=== PATIENT | female | born 1965 | race Caucasian/White ===

== ENCOUNTER → 2016-06-19 | Outpatient (CLI) | payer OTHER ==
[2016-06-19 15:19] LABS: BASO % 0.2 %; BASO ABS # 0.02 K/uL (0-0.2); COMPLETE YES; EOS % 1.7 %; IG% 0.2 %; LYMPH % 30.3 %; LYMPH ABS # 2.68 K/uL (1.2-3.4); MEAN CELL VOLUME 92.7 fL (80-100); MEAN CORPUSCULAR HEMOGLOBIN 31.1 pg (25-34); MEAN CORPUSCULAR HGB CONC 33.6 g/dl (32-36); MEAN PLATELET VOLUME 9.2 fL (7.4-10.4); MONO % 4.5 %; NEUT % 63.1 %; PLATELET COUNT 377 K/uL (130-400); RED BLOOD COUNT 4.53 M/uL (4.2-5.4); WHITE BLOOD COUNT 8.84 K/uL (4.8-10.8)
[2016-06-19 15:29] LABS: ALT/SGPT 33 U/L (12-78); BLOOD UREA NITROGEN 15 mg/dl (7-18); BUN/CREATININE RATIO 17.3 (10-20); CALCIUM 9.2 mg/dl (8.5-10.1); CARBON DIOXIDE 29 mmol/L (21-32); CHLORIDE 100 mmol/L (98-107); CREATININE 0.85 mg/dl (0.60-1.20); GLUCOSE 89 mg/dl (70-99); POTASSIUM 3.8 mmol/L (3.5-5.1); SODIUM 139 mmol/L (136-145)
[2016-06-19 15:32] LABS: ALB/GLOB RATIO 1.1 (0.9-2); ALKALINE PHOSPHATASE 99 U/L (45-117); AST/SGOT 21 U/L (15-37)
== END | disposition home or self-care (01) ==
LOC: C.LABSPEC 15:08
PROVIDERS: ATTEND Family Medicine
DX: I10 Essential (primary) hypertension (principal)

== ENCOUNTER → 2016-08-30 | Outpatient (CLI) | payer OTHER ==
--- NOTE | 2016-08-30 15:35 | MAMMOGRAPHY REPORT ---
BILATERAL DIGITAL SCREENING MAMMOGRAM TOMOSYNTHESIS WITH CAD: 08/30/2016 CLINICAL HISTORY: Routine screening. Patient has no complaints. TECHNIQUE: Breast tomosynthesis in addition to standard 2D mammography was performed. Current study was also evaluated with a Computer Aided Detection (CAD) system. COMPARISON: Comparison is made to exams dated: 08/25/2015 mammogram, 08/19/2014 mammogram, 08/16/2013 m ammogram, 04/02/2013 mammogram, 08/28/2012 mammogram, and 08/14/2012 mammogram - [facility] enter. BREAST COMPOSITION: There are scattered areas of fibroglandular density in both breasts. FINDINGS: No suspicious masses, calcifications, or areas of architectural distortion are noted in e ither breast. There has been no significant interval change compared to prior exams. IMPRESSION: ACR BI-RADS CATEGORY 1: NEGATIVE There is no mammographic evidence of malignancy. A 1 year screening mammogram is recommended. The p atient will receive written notification of the results. Approximately 10% of breast cancers are not detected with mammography. A negative mammographic repor t should not delay biopsy if a clinically suggestive mass is present. Radha Dominguez M.D. ah/:08/30/2016 15:17:05 Fuel Cell Binder: Celestina CROCKER(R)(M), [facility] letter sent: Normal 1/2 BI-RADS Code: ACR BI-RADS Category 1: Negative
== END | disposition home or self-care (01) ==
LOC: C.MAMM 08:46
PROVIDERS: ATTEND Obstetrics & Gynecology
DX: Z12.31 Encounter for screening mammogram for malignant neoplasm of breast (principal)

== ENCOUNTER → 2017-08-05 | Outpatient (CLI) | payer OTHER ==
--- NOTE | 2017-08-05 17:44 | DIAGNOSTIC IMAGING REPORT ---
LUMBAR SPINE RADIOGRAPHS CLINICAL HISTORY: LOW BACK PAIN COMPARISON: None FINDINGS: Alignment of the lumbar spine is anatomic. There is moderate disc space narrowing at L5-S1. There is moderate multilevel facet arthrosis. There is no fracture or suspicious lesion. IMPRESSION: 1. No acute lumbar spine fracture. 2. Moderate disc space narrowing at L5-S1. 3. Moderate multilevel facet arthrosis of the lumbar spine. Electronically signed by: Nicholas Thompson M.D. 08/05/2017 5:42 PM Dictated Date/Time: 08/05/2017 5:41 PM
--- NOTE | 2017-08-05 17:49 | DIAGNOSTIC IMAGING REPORT ---
SACRUM COCCYX MIN 2 VIEWS CLINICAL HISTORY: LOW BACK PAIN COMPARISON STUDY: No previous studies for comparison. FINDINGS: The sacroiliac joints are intact without evidence for ankylosis. There is no fracture or suspicious lesion within the sacrum or the coccyx. There is moderate degenerative disc disease at L5-S1. IMPRESSION: 1. No acute fracture of the sacrum or coccyx. 2. Moderate degenerative disc disease at L5-S1. Electronically signed by: Nicholas Thompson M.D. 08/05/2017 5:47 PM Dictated Date/Time: 08/05/2017 5:42 PM
--- NOTE | 2017-08-05 18:21 | DIAGNOSTIC IMAGING REPORT ---
KUB CLINICAL HISTORY: LOW BACK PAIN COMPARISON STUDY: None. FINDINGS: The bowel gas pattern is normal. Several calcifications project over the right renal shadow and measure up to 3 mm. There are numerous pelvic calcifications. IMPRESSION: 1. Probable small right renal calculi. 2. Numerous pelvic calcifications. These likely reflect phleboliths although distal ureteral calculi could appear similar. Electronically signed by: Nicholas Thompson M.D. 08/05/2017 6:20 PM Dictated Date/Time: 08/05/2017 6:18 PM
== END | disposition home or self-care (01) ==
LOC: C.RAD 16:41
PROVIDERS: ATTEND Family Medicine
DX: M54.5 Low back pain (principal)

== ENCOUNTER → 2017-08-29 | Outpatient (CLI) | payer OTHER ==
--- NOTE | 2017-08-29 16:11 | DIAGNOSTIC IMAGING REPORT ---
R WRIST MIN 3 VIEWS ROUTINE CLINICAL HISTORY: Right wrist pain. COMPARISON: None FINDINGS: Alignment of the right wrist is anatomic. No fracture or suspicious lesion is present. Scaphoid is intact. No erosions are identified. There is minimal radiocarpal joint space narrowing. IMPRESSION: 1. No acute fracture or dislocation of the right wrist. 2. Minimal radiocarpal joint space narrowing. Electronically signed by: Nicholas Thompson M.D. 08/29/2017 4:10 PM Dictated Date/Time: 08/29/2017 4:09 PM
== END | disposition home or self-care (01) ==
LOC: C.RAD 15:30
PROVIDERS: ATTEND Family Medicine
DX: M25.531 Pain in right wrist (principal)

== ENCOUNTER → 2017-09-03 | Outpatient (CLI) | payer OTHER ==
--- NOTE | 2017-09-04 07:57 | MAMMOGRAPHY REPORT ---
BILATERAL DIGITAL SCREENING MAMMOGRAM TOMOSYNTHESIS WITH CAD: 09/03/2017 CLINICAL HISTORY: Routine screening. Patient has no complaints. TECHNIQUE: Breast tomosynthesis in addition to standard 2D mammography was performed. Current study was also evaluated with a Computer Aided Detection (CAD) system. COMPARISON: Comparison is made to exams dated: 08/30/2016 mammogram, 08/25/2015 mammogram, 08/19/2014 carlos mogram, 08/16/2013 mammogram, 04/02/2013 mammogram, and 08/28/2012 mammogram - [facility] [address] er. BREAST COMPOSITION: There are scattered areas of fibroglandular density in both breasts. FINDINGS: No suspicious masses, calcifications, or areas of architectural distortion are noted in ei ther breast. There has been no significant interval change compared to prior exams. Scattered bilater al benign-appearing calcifications are not significantly changed. Benign-appearing circumscribed 7 m m mass within the right medial breast on the cc view is not significantly changed dating back [place] exam. IMPRESSION: ACR BI-RADS CATEGORY 2: BENIGN There is no mammographic evidence of malignancy. A 1 year screening mammogram is recommended. The pa tient will receive written notification of the results. Approximately 10% of breast cancers are not detected with mammography. A negative mammographic report should not delay biopsy if a clinically suggestive mass is present. Radha Dominguez M.D. ah/:09/03/2017 09:11:04 Scouring Machine Operator: Maya CROCKER,R, M, [facility] letter sent: Normal 1/2 BI-RADS Code: ACR BI-RADS Category 2: Benign
== END | disposition home or self-care (01) ==
LOC: C.MAMM 08:43
PROVIDERS: ATTEND Obstetrics & Gynecology
DX: Z12.31 Encounter for screening mammogram for malignant neoplasm of breast (principal)

== ENCOUNTER → 2017-12-25 | Outpatient (CLI) | payer OTHER | END | disposition home or self-care (01) | LOC: C.PAPS 15:49 | PROVIDERS: ATTEND Obstetrics & Gynecology | DX: Z12.4 Encounter for screening for malignant neoplasm of cervix (principal) ==

== ENCOUNTER 2024-10-05 17:09 | Observation (INO) ==
--- NOTE | 2024-10-05 17:19 | Emergency Department Note ---
Impression & Plan Syncope, Hypokalemia, Chest pain ED Provider Note NAME: ELIZABETH ALEMAN AGE: 58 SEX: F : 1965 ARRIVES VIA: Walk-In INFORMANT: Patient, ED PROVIDER(S): Jose Strickland MD CHIEF COMPLAINT: Chest pain MEDICAL DECISION MAKING: Patient presents due to concern for chest pain. IV was established and blood work was obtained. The patient's blood work normal white count hemoglobin and platelet count. Troponin negative. Initial EKG with possible ST depressions in the lateral leads although motion artifact noted. The patient chest x-ray without overt concerning findings. Mild cardiac enlargement noted. Upon reassessment the patient feels relatively well. Repeat EKG obtained which does not show any depressions. I did consider escalation of care and offered admission after discussion the patient the patient would prefer the patient monitoring and possible stress test tomorrow. I did speak with the on-call hospital service Dr. Clayton. The patient was ordered p.o. potassium. Discussion w/ other healthcare providers: None Prior /Outside records reviewed: None Differential diagnosis: Cardiac ischemia, aortic dissection, pulmonary embolism, pneumothorax, pneumonia, pericarditis, myocarditis, GERD, cholecystitis, pancreatitis, musculoskeletal, as well as other pathologies were considered. Diagnostics, as interpreted by me: ECG: Motion artifact noted, normal sinus rhythm, rate of 86, normal intervals, normal axis, T wave inversion in lead III possible depressions in the lateral leads. Repeat EKG interpreted by myself Normal sinus rhythm, rate of 77, normal intervals normal axis T wave version lead III no obvious ST elevations. Cardiac monitoring: An order was placed for continuous cardiac monitoring. The monitor shows a rate of 85 with sinus rhythm. Patient was placed on pulse oximetry Medical decision rules: None Imaging studies: I informally interpreted the patient's chest x-ray does not show obvious pneumonia or pneumothorax with formal report to follow. HPI: Patient presents due to concern for chest tightness. Patient reports that she has had it for maybe about a week. Patient states it is more right-sided and is described as a tightness. Currently rates it at a 2 out of 10. The patient states she does have concomitant anxiety and is unsure as whether this could be related. Patient denies any cough or fever no recent surgeries procedures or hospitalizations and no recent [place] or plane travel. Patient states that sometimes at the end of the day she will have a little bit of swelling at the ankle with denies any persistent swelling. It is not unilateral and no associated calf pain. Patient denies any prior history of heart or lung disease. History of hypertension hyperlipidemia. No cough or fever. Patient states that she was seen at her PCP today and they were recommending an outpatient stress test but due to the concerns of inability to schedule until October were referred here for further evaluation and treatment. Patient denies any radiation of pain. PAST MEDICAL HISTORY: See Below PAST SURGICAL HISTORY: See Below SOCIAL HISTORY: See Below HOME MEDICATIONS: See Below ALLERGIES: See Below VITALS: See Below PHYSICAL EXAMINATION: GENERAL: NAD, non-toxic. Wearing glasses. EYE EXAM: Normal conjunctiva. PERRL, no anisocoria and EOM's grossly intact w/o pain. OROPHARYNX: Moist mucus membranes, grossly normal dentition. NECK: Trachea midline, no stridor. Supple, no nuchal rigidity, no adenopathy, non-tender. No signs of meningismus. FROM of the neck with good chin to chest and neck extension. Chest: No reproducible right-sided chest wall pain. LUNGS: Clear to auscultation. Normal chest wall mechanics. HEART: NSR, no MRG. ABDOMEN: Abdomen soft, non-tender, no masses, no rebound or guarding. BACK: No CVA TTP. SKIN: No rashes and no bruising. UPPER EXTREMITIES: Upper extremities are grossly normal. LOWER EXTREMITIES: Grossly normal, no edema. Negative Homans' sign bilaterally. NEURO EXAM: Awake and alert, follows commands, no obvious facial asymmetry, normal speech, moves all 4 extremities. 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, benign H/O endoscopy S/P dilation and curettage S/P skin biopsy Family History Aunt Breast cancer paternal Grandmother (Paternal) Breast cancer Osteosarcoma Father Aneurysm of abdominal aorta Mother Leiomyoma of body of uterus Osteonecrosis of jaw Denies family history of Ovarian cancer Colorectal cancer Social History Smoking Status: Never smoker Do You Dip or Chew Tobacco: No; Hx Alcohol Use: Yes Hx Substance Use: No Preferred Language: Kiswahili Communication Ability: Effective Ditch Repairer Required: No Beliefs That Will Affect Care: None Current Living Situation: Spouse Feels Safe at Home: Yes Assistive Devices: None Allergies Allergies Allergy/AdvReac Type Severity Reaction Status Date / Time cat dander Allergy Unknown Unknown Verified 10/05/24 23:01 dog dander Allergy Unknown Unknown Verified 10/05/24 23:01 house dust mite Allergy Unknown Unknown Verified 10/05/24 23:01 Gadolinium-Containing Allergy Anaphylaxis Verified 09/24/24 10:10 Contrast Medi cephalexin [From Keflex] AdvReac rash Verified 09/24/24 10:10 Home Meds Home Medications Medication Instructions Recorded Confirmed cholecalciferol (vitamin D3) 50 2,000 units PO DAILY 12/31/18 10/05/24 mcg (2,000 unit) capsule levothyroxine 88 mcg tablet 88 mcg PO DAILY 12/31/18 10/05/24 albuterol sulfate 90 mcg/actuation 1 - 2 puff inhalation .EVERY 4-6 10/05/24 10/05/24 aerosol inhaler HRS atorvastatin 20 mg tablet 20 mg PO UD 10/05/24 10/05/24 multivitamin 1 tab PO DAILY 10/05/24 10/05/24 Previous Rx's Medication Instructions Recorded estradiol 0.01% (0.1 mg/gram) 1 g vaginal .COMPLEX #42.5 grams 09/24/24 vaginal cream lisinopril 20 mg tablet 20 mg PO DAILY #30 tabs 10/06/24 Results & Data (ED) Vital Signs Vital Signs - 24 hr 10/05/24 17:12 10/05/24 17:29 Temperature 36.0 C L Temperature Source Oral Pulse Rate 94 H Pulse Rate [Right Finger] 92 H Pulse Rhythm [Right Finger] Regular Pulse Strength [Right Finger] Normal Respiratory Rate 18 23 Respiratory Effort / Characteristics Non-Labored Spontaneous Non-Labored Respiratory Depth Normal Normal Respiratory Pattern Regular Blood Pressure 160/85 H Blood Pressure [Right Arm] 170/112 H Blood Pressure Mean 110 Blood Pressure Mean [Right Arm] 131 Blood Pressure Position [Right Arm] Lying Pulse Oximetry 100 92 Oxygen Delivery Method Room Air Nasal Cannula Oxygen Flow Rate 2 Sepsis Recent Fever Within 48 Hours No Sepsis New/Unexplained Change in Mental Status No Sepsis Action Taken by Nursing No Action Required Home Medications Current Medication List: was personally reviewed by me Laboratory Data Attestation: I reviewed the patient's lab results. 10/05/24 17:27 10/06/24 06:34 Lab Results 10/05/24 Range/Units 17:27 WBC 10.46 (4.8-10.8) K/ul RBC 4.44 (4.20-5.40) M/uL Hgb 13.8 (12.0-16.0) g/dl Hct 39.9 (37.0-47.0) % MCV 89.9 (80.0-100.0) fL MCH 31.1 (25.0-34.0) pg MCHC 34.6 (32.0-36.0) g/dL RDW Std Deviation 40.3 (36.4-46.3) fL RDW Coeff of [place] 12.2 (11.5-14.5) % Plt Count 329 (130-400) K/uL MPV 8.7 L (9.4-12.4) fL Immature Gran % (Auto) 0.3 % Neut % (Auto) 53.3 % Lymph % (Auto) 34.4 % [place] % (Auto) 9.3 % Eos % (Auto) 2.2 % Baso % (Auto) 0.5 % Neut # (Auto) 5.58 (1.40-6.50) K/uL Lymph # (Auto) 3.60 H (1.20-3.40) K/uL [place] # (Auto) 0.97 H (0.11-0.59) K/uL Eos # (Auto) 0.23 (0.00-0.50) K/uL Baso # (Auto) 0.05 (0.00-0.20) K/uL Immature Gran # (Auto) 0.03 (0.01-0.20) K/uL PT 10.6 (9.0-12.0) Seconds INR 1.0 (0.9-1.1) APTT 28 (21-31) Seconds PTT Ratio 1.0 Sodium 138 (136-145) mmol/L Potassium 3.0 L (3.5-5.1) mmol/L Chloride 98 (98-107) mmol/L Carbon Dioxide 34 H (21-32) mmol/L Anion Gap 6 (3-11) BUN 15 (6-23) mg/dl Creatinine 0.76 (0.6-1.2) mg/dl Est Cr Clr Drug Dosing 75.5 ml/min eGFR 90.77 BUN/Creatinine Ratio 19.7 (10-20) Glucose 73 (70-99(Fasting)) mg/dl Calcium 10.1 (8.6-10.3) mg/dl Magnesium 2.1 (1.7-2.4) mg/dl Total Bilirubin 0.8 (0.2-1.0) mg/dl AST 19 (13-39) U/L ALT 29 (7-52) U/L Alkaline Phosphatase 98 (34-104) U/L Troponin I High Sens 3.0 (0-14) pg/ml Total Protein 7.6 (6.0-8.3) gm/dl Albumin 4.7 (3.4-5.0) gm/dl Globulin 2.9 (2.5-4.0) gm/dl Albumin/Globulin Ratio 1.6 (0.9-2) Lipase 56 (11-82) U/L TSH 0.773 (0.300-4.500) uIu/ml Administered Medications Discontinued Medications Atorvastatin Calcium (Atorvastatin 20 Mg Tab) 20 mg PO DAILY [facility] Stop: 11/05/24 08:59 Last Admin: 10/06/24 11:08 Dose: Not Given Documented By: [facility] Atropine Sulfate (Atropine Sulfate 0.1 Mg/Ml 10ml Syr) Confirm Administered Dose 2 mg IV .STK-MED ONE Stop: 10/06/24 09:47 Last Admin: 10/06/24 11:46 Dose: Not Given Documented By: [facility] Dobutamine HCl (Dobutamine Hcl 12.5 Mg/Ml 20 Ml Vial) Confirm Administered Dose 250 mg IV .STK-MED ONE Stop: 10/06/24 09:47 Last Admin: 10/06/24 11:46 Dose: Not Given Documented By: SAMMY Enoxaparin Sodium (Enoxaparin Inj 40 Mg/0.4 Ml Syr) 40 mg SQ HS ERNESTO Stop: 11/04/24 23:14 Last Admin: 10/05/24 23:41 Dose: Not Given Documented By: [id number] Sodium Chloride (Nss) 1,000 mls @ 999 mls/hr IV .Q1H1M ONE Stop: 10/05/24 20:30 Last Infusion: 10/05/24 20:58 Dose: Infused Documented By: Admin: 10/05/24 19:41 Dose: 999 mls/hr Documented By: DOMENICA Famotidine (Pepcid 20mg Iv Push) 20 mg in 5 mls @ 2.5 mls/min IV QAM ERNESTO Stop: 11/05/24 08:59 Last Admin: 10/06/24 11:20 Dose: Not Given Documented By: SAMMY Levothyroxine Sodium (Levothyroxine Sodium 88 Mcg Tablet) 88 mcg PO DAILYBB ERNESTO Stop: 11/05/24 06:29 Last Admin: 10/06/24 05:40 Dose: 88 mcg Documented By: [id number] Lorazepam (Lorazepam 2 Mg/1 Ml Vial) 0.25 mg IV PRN ONE Stop: 10/05/24 20:14 Last Admin: 10/05/24 20:32 Dose: 0.25 mg Documented By: DOMENICA Metoprolol Tartrate (Metoprolol Tartrate 1 Mg/Ml Vial) Confirm Administered Dose 10 mg IV .STK-MED ONE Stop: 10/06/24 09:47 Last Admin: 10/06/24 11:46 Dose: Not Given Documented By: SAMMY Potassium Chloride (Potassium Chloride Crtab 20 Meq Tabcr) 40 meq PO NOW STA Stop: 10/05/24 19:31 Last Admin: 10/05/24 19:39 Dose: 40 meq Documented By: DOMENICA Imaging Data Radiologist's Impression: Chest X-Ray 10/05/24 00:00 Open the EXAM: Portable AP chest radiograph TECHNIQUE: AP portable radiograph of the chest was obtained. INDICATION: Chest pain. Comparison: None FINDINGS: LINES and TUBES: None CARDIOVASCULAR: Cardiac silhouette is mildly enlarged in size. Atherosclerosis of the thoracic aorta. LUNGS/PLEURA: No focal consolidation identified. Chronic interstitial changes of the lungs. No significant pleural fluid. No discernible pneumothorax. OSSEOUS/OTHER: No displaced acute osseous process identified. IMPRESSION: Mild cardiac enlargement. Electronically signed by Darryl Keyes 10-05-2024 7:35 PM Discharge Plan Visit Data Chief Complaint: Chest Pain Stated Complaint: CHEST DISCOMFORT/PRESSURE, PASSED OUT X2 ED Provider: Jose Strickland Discharge Problem: Syncope, Hypokalemia, Chest pain Patient Disposition: Admitted As Inpatient Condition: Good Discharge Instructions Interventions: ED Discharge Assessment Last Done: 10/05/24 22:21 Discharge Problem: Syncope Qualifiers: Syncope type: unspecified Qualified Code(s): R55 - Syncope and collapse Chest pain Qualifiers: Chest pain type: unspecified Qualified Code(s): R07.9 - Chest pain, unspecified
[2024-10-05 17:53] LABS: Basophils # (auto) 0.05 K/uL (0.00-0.20); Basophils % (auto) 0.5 %; Eosinophils # (auto) 0.23 K/uL (0.00-0.50); Eosinophils % (auto) 2.2 %; Hematocrit (blood only) 39.9 % (37.0-47.0); Hemoglobin 13.8 g/dl (12.0-16.0); Immature Granulocytes # (auto) 0.03 K/uL (0.01-0.20); Immature Granulocytes % (auto) 0.3 %; Lymphocytes % (auto) 34.4 %; Mean Corpuscular Hemoglobin 31.1 pg (25.0-34.0); Mean Corpuscular Hgb Conc 34.6 g/dL (32.0-36.0); Mean Corpuscular Volume 89.9 fL (80.0-100.0); Mean Platelet Volume 8.7 fL (9.4-12.4); Monocytes # (auto) 0.97 K/uL (0.11-0.59); Monocytes % (auto) 9.3 %; Neutrophils # (auto) 5.58 K/uL (1.40-6.50); Neutrophils % (auto) 53.3 %; Platelet Count 329 K/uL (130-400); RDW Coefficient of Variation 12.2 % (11.5-14.5); RDW Standard Deviation 40.3 fL (36.4-46.3); Red Blood Count 4.44 M/uL (4.20-5.40); White Blood Count 10.46 K/ul (4.8-10.8)
[2024-10-05 18:15] LABS: Albumin Globulin Ratio 1.6 (0.9-2); Albumin Level 4.7 gm/dl (3.4-5.0); BUN Creatinine Ratio 19.7 (10-20); Bilirubin,Total 0.8 mg/dl (0.2-1.0); Calcium 10.1 mg/dl (8.6-10.3); Creatinine Clr Calc Pharmacy 75.5 ml/min; Globulin 2.9 gm/dl (2.5-4.0); Total Protein 7.6 gm/dl (6.0-8.3)
[2024-10-05 18:31] LABS: Partial Thromboplastin Time 28 Seconds (21-31); Prothrombin Time 10.6 Seconds (9.0-12.0)
--- NOTE | 2024-10-05 19:36 | XRay Report ---
Open the EXAM: Portable AP chest radiograph TECHNIQUE: AP portable radiograph of the chest was obtained. INDICATION: Chest pain. Comparison: None FINDINGS: LINES and TUBES: None CARDIOVASCULAR: Cardiac silhouette is mildly enlarged in size. Atherosclerosis of the thoracic aorta. LUNGS/PLEURA: No focal consolidation identified. Chronic interstitial changes of the lungs. No significant pleural fluid. No discernible pneumothorax. OSSEOUS/OTHER: No displaced acute osseous process identified. IMPRESSION: Mild cardiac enlargement. Electronically signed by Darryl Keyes 10-05-2024 7:35 PM
[2024-10-05] MEDS: POTASSIUM CHLORIDE CRTAB 20 MEQ TABCR PO STA (19:39)
[2024-10-05] MEDS: SODIUM CHLORIDE 0.9% 1,000 ML IV ONE (19:41)
--- NOTE | 2024-10-05 19:49 | History & Physical Report ---
Date of Service October 05, 2024 Assessment & Plan (1) Chest pain: (2) Syncope: (3) Hypokalemia: Plan 58-year-old female PMHx asthma, migraine headaches, GERD, anxiety, hypothyroidism, and history of BCC presenting for chest pain x 1 week with associated syncope x 2. ED evaluation reveals no leukocytosis, stable H&H; PT/INR WNL; CMP potassium 3. 3.0; pending magnesium 0, CO2 34; magnesium pending; troponin 3.0, pending repeat; lipase 56; CXR mild cardiac enlargement; EKG NSR with possible LAE at 77 bpm.; Provided with KCl 40 mEq p.o. and NSS 1L in ED. #Chest pain/Syncope Chest pressure/tightness starting at approximately 1 week ago, with associated s yncope x 2 episodes within the past week. Describes associated palpitations/fluttering. No triggering factors. ? orthostasis vs arrhythmia vs other. - CBC, PT/INR WNL; CMP with potassium 3.0 otherwise grossly WNL - BMP am - Troponin 3.0, pending repeat - EKG normal sinus at 77 bpm, no ischemic changes - CXR without acute findings - Stress echo pending for a.m. - Lipid panel pending - Continue cardiac monitoring - Orthostatic vitals pending #Hypokalemia Asymptomatic currently. Received KCl 40 mEq po in ED. - K 3.0; Mg 2.1 - HOLD lisinopril-HCTZ until repeat K - BMP am #Asthma- Albuterol prn - continue #HLD- Atorvastatin 20mg - continue #Hypothyroidism- TSH pending; Levothyroxine - continue #HTN- Lisinopril-hydrochlorothiazide -- HOLD given hypokalemia Experiencing increased anxiety in hospital setting- provided 1 time dose lorazepam for such. Dispo: Admit, med/tele VTE prophylaxis: Lovenox This document was dictated utilizing [employer]. Please excuse any grammatical errors that may be secondary to use of this software. Admission and Anticipated Discharge Date Admission Date: 10/05/2024 History of Present Illness Chief Complaint: Chest pain, syncope Primary Care Provider: Genoveva Fontaine 58-year-old female PMHx asthma, migraine headaches, GERD, anxiety, hypothyroidism, and history of BCC presenting for chest pain x 1 week with associated syncope x 2. Patient states that approximately 1 week DAYTIME CAREGIVER she started to notice fluttering in her chest and stated that her heart was "beating strange." Describes the sensation as being a tightness across her entire chest that increases whenever she has increased anxiety. This did cause her some chest pressure and discomfort. Patient states she is often active and likes to walk daily, but approximately 1 week DAYTIME CAREGIVER she was walking and had increased fatigue from her baseline. Notes that on 2 separate occasions she had episodes where she would get up in the middle the night to go to the restroom and walk a few steps then suddenly passing out for 1 to 2 seconds and regain consciousness as she was falling. Patient states that she did not fall to the floor fall and did not injure any part of her body. Did not hit her head. States that these episodes were completely unprovoked and she did not get any dizziness, chest pain, or SOB prior to passing out. This occurred approximately 5 days DAYTIME CAREGIVER and then 2 days DAYTIME CAREGIVER. The chest discomfort continued into the day of arrival and was not getting better, so the patient called her PCP who encouraged her to have a stress echo done. This was unable to be scheduled until October, so given the ongoing chest pain and episodes of syncope, patient's PCP encouraged her to come to the ED for evaluation. Patient denies dizziness or lightheadedness. Patient states that her anxiety has increased significantly given these new symptoms and her concern for her health. Will occasionally get bilateral lower extremity edema, but this has not been a recent occurrence for patient. Overall denying shortness of breath, abdominal pain, N/V/D/C, numbness/tingling, fever/chills, URI symptoms, or fever/chills. Has never had this happen before. Patient took all of her daily medications. ED evaluation reveals no leukocytosis, stable H&H; PT/INR WNL; CMP potassium 3.0, CO2 34; magnesium 2.1; troponin 3.0, pending repeat; lipase 56; CXR mild cardiac enlargement; EKG NSR with possible LAE at 77 bpm.; Provided with KCl 40 mEq p.o. and NSS 1L in ED. Please see Dr. Clayton's attestation for adjustments/additions to treatment plan. Allergies Allergy/AdvReac Type Severity Reaction Status Date / Time cat dander Allergy Unknown Unknown Verified 10/05/24 23:01 dog dander Allergy Unknown Unknown Verified 10/05/24 23:01 house dust mite Allergy Unknown Unknown Verified 10/05/24 23:01 Gadolinium-Containing Allergy Anaphylaxis Verified 09/24/24 10:10 Contrast Medi cephalexin [From Keflex] AdvReac rash Verified 09/24/24 10:10 Home Medications Medication Instructions Recorded Confirmed Type cholecalciferol (vitamin D3) 50 2,000 units PO DAILY 12/31/18 10/05/24 History mcg (2,000 unit) capsule levothyroxine 88 mcg tablet 88 mcg PO DAILY 12/31/18 10/05/24 History estradiol 0.01% (0.1 mg/gram) 1 g vaginal .COMPLEX #42.5 grams 09/24/24 10/05/24 Rx vaginal cream albuterol sulfate 90 mcg/actuation 1 - 2 puff inhalation .EVERY 4-6 10/05/24 10/05/24 History aerosol inhaler HRS atorvastatin 20 mg tablet 20 mg PO UD 10/05/24 10/05/24 History lisinopril 20 1 tab PO DAILY 10/05/24 10/05/24 History mg-hydrochlorothiazide 25 mg tablet multivitamin 1 tab PO DAILY 10/05/24 10/05/24 History Past Med/Surg History Problem List (Updated 10/05/24 @ 20:23 by Airam Cintron PA-C) Hypokalemia Syncope Chest pain YOLANDA (stress urinary incontinence, female) Postmenopausal Asthma Migraine headache Esophageal reflux Anxiety Medical History Right nephrolithiasis Hypothyroidism H/O varicella Herpes simplex infection History of basal cell cancer Asthma Surgical History H/O hand surgery Previous back surgery H/O excision of 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, benign H/O endoscopy S/P dilation and curettage S/P skin biopsy Family History Aunt Breast cancer paternal Grandmother (Paternal) Breast cancer Osteosarcoma Father Aneurysm of abdominal aorta Mother Leiomyoma of body of uterus Osteonecrosis of jaw Denies family history of Ovarian cancer Colorectal cancer Social History Smoking Status: Never smoker Do You Dip or Chew Tobacco: No; Hx Alcohol Use: Yes Hx Substance Use: No Preferred Language: Georgian Communication Ability: Effective Special Programs Director Required: No Beliefs That Will Affect Care: None Current Living Situation: Spouse Other Information That Helps Us Care for You: No Feels Safe at Home: Yes Safety Concerns: Feels Safe At This Time Assistive Devices: Glasses Review of Systems Review of Systems: All systems reviewed & are unremarkable except as noted in Subjective Physical Exam Physical Exam: General: No acute distress Skin: Warm and dry Head: Normocephalic, atraumatic Eyes: PERRL, conjunctivae clear, sclera non-icteric; wearing glasses ENT: External ear and ear canal without swelling; nose atraumatic; good dentition, tongue normal appearance, pharynx normal Neck: Supple, no LAD Cardio: RRR, no M/G/R, S1 and S2 normal Resp: No respiratory distress, Lungs CTA in all lobes bilaterally, no wheezes, rales, or rhonchi Abdomen: Soft, symmetric, nontender; No masses or hepatosplenomegaly; Bowel sounds normoactive MSK: No deformities; pulses palpable and equal; no edema. Neuro: Awake, alert; Sensation intact bilaterally; CN grossly intact Psych: Visibly anxious, good judgement and insight. present in room at time of visit. Results & Data Results & Data Vital Signs (Past 12 Hours) Vital Signs Temp Pulse Pulse Pulse Resp BP BP 10/05/24 19:10 79 20 119/73 10/05/24 17:54 69 10/05/24 17:44 10/05/24 17:29 92 H 23 170/112 H 10/05/24 17:12 36.0 C L 94 H 18 160/85 H Pulse Ox O2 Del Method O2 Flow Rate 10/05/24 19:10 100 Room Air 10/05/24 17:54 10/05/24 17:44 99 Room Air 10/05/24 17:29 92 Nasal Cannula 2 10/05/24 17:12 100 Room Air Laboratory Results 10/05/24 17:27 WBC 10.46 RBC 4.44 Hgb 13.8 Hct 39.9 MCV 89.9 MCH 31.1 MCHC 34.6 RDW Std Deviation 40.3 RDW Coeff of [place] 12.2 Plt Count 329 MPV 8.7 L Immature Gran % (Auto) 0.3 Neut % (Auto) 53.3 Lymph % (Auto) 34.4 [place] % (Auto) 9.3 Eos % (Auto) 2.2 Baso % (Auto) 0.5 Neut # (Auto) 5.58 Lymph # (Auto) 3.60 H [place] # (Auto) 0.97 H Eos # (Auto) 0.23 Baso # (Auto) 0.05 Immature Gran # (Auto) 0.03 PT 10.6 INR 1.0 APTT 28 PTT Ratio 1.0 Sodium 138 Potassium 3.0 L Chloride 98 Carbon Dioxide 34 H Anion Gap 6 BUN 15 Creatinine 0.76 Est Cr Clr Drug Dosing 75.5 eGFR 90.77 BUN/Creatinine Ratio 19.7 Glucose 73 Calcium 10.1 Total Bilirubin 0.8 AST 19 ALT 29 Alkaline Phosphatase 98 Troponin I High Sens 3.0 Total Protein 7.6 Albumin 4.7 Globulin 2.9 Albumin/Globulin Ratio 1.6 Lipase 56 Diagnostic Findings Chest X-Ray 10/05/24 00:00 Open the EXAM: Portable AP chest radiograph TECHNIQUE: AP portable radiograph of the chest was obtained. INDICATION: Chest pain. Comparison: None FINDINGS: LINES and TUBES: None CARDIOVASCULAR: Cardiac silhouette is mildly enlarged in size. Atherosclerosis of the thoracic aorta. LUNGS/PLEURA: No focal consolidation identified. Chronic interstitial changes of the lungs. No significant pleural fluid. No discernible pneumothorax. OSSEOUS/OTHER: No displaced acute osseous process identified. IMPRESSION: Mild cardiac enlargement. Electronically signed by Darryl Keyes 10-05-2024 7:35 PM Medications Administered KCl 40 mEq p.o. 1L NSS ECG Additional Comments: NSR, possible LAE 77 bpm, ND 160, QRS 82, QT/QTc 400/452, PRT 61/2/8 Code Status & VTE Plan Code Status Full Supervising Physician Co-Signing Physician Notes patient seen and examined, chart reviewed, case discussed with MARVIN Cintron and I agree with the assessment and plan as document above. In brief, patient is a 58-year-old female with history of GERD, asthma, hypertension presenting with mild right sided chest pain. Patient also with 2 episodes of syncope over the last week. Both episodes of syncope occurred when she woke in the middle of the night to get up and use the bathroom. She states that she got out of bed, walked several steps then passed out. There was no prodrome associated with this. She denies chest pain, palpitations, dizziness. She woke up on the floor. No concern for seizure. She does report the sensation of fluttering in her chest for the last week. On physical exam patient is afebrile, hemodynamically stable. Telemetry reviewedno arrhythmia + S1, S2, regular, no murmur/rub/gallop Lungs CTA anteriorly Abdomen soft, nontender, nondistended Extremities warm and well-perfused Labs and images reviewed. Patient with hypokalemia K = 3 Troponin = 3, repeat pending Assessment/Plan -Trend troponin -Stress echo for AM -K repletion -Remainder as above PG Care Time/CCT Total # of Minutes Spent Total Time Spent with Patient: Total time spent is greater than 50% in coordination of care (as documented) at patient's floor/unit and/or counseling patient: Coding Level of Care Code 62349 INT INP/OBS CARE 3/75MIN Diagnoses Chest pain R07.9 Syncope R55 Hypokalemia E87.6
[2024-10-05 19:50] LABS: Magnesium 2.1 mg/dl (1.7-2.4)
[2024-10-05 20:29] LABS: Thyroid Stimulating Hormone 0.773 uIu/ml (0.300-4.500)
[2024-10-05] MEDS: LORazepam 2 MG/1 ML VIAL IV ONE (20:32)
[2024-10-05] MEDS ORDERED: ACETAMINOPHEN 325 MG TAB PO PRN (22:56)
[2024-10-05] MEDS ORDERED: MELATONIN 3 MG TAB PO PRN (22:56)
[2024-10-05] MEDS ORDERED: ALBUTEROL HFA 8 GM INHALER INH PRN (22:56)
[2024-10-05] MEDS ORDERED: POLYETHYLENE (MIRALAX) 17 GM PACK PO PRN (22:56)
[2024-10-05] MEDS ORDERED: ONDANSETRON INJ 2 MG/ML 2 ML VIAL IV PRN (22:56)
[2024-10-05] MEDS: ENOXAPARIN INJ 40 MG/0.4 ML SYR SQ SCH (23:41)
[2024-10-06] MEDS: LEVOTHYROXINE SODIUM 88 MCG TABLET PO SCH (05:40)
[2024-10-06 07:28] LABS: BUN Creatinine Ratio 17.6 (10-20); Calcium 9.3 mg/dl (8.6-10.3); Chol HDL Ratio 3.4 (0-5); Creatinine Clr Calc Pharmacy 86.1 ml/min; Potassium 4.1 mmol/L (3.5-5.1)
--- NOTE | 2024-10-06 07:37 | Hospitalist Progress Note ---
Date of Service October 06, 2024 Assessment & Plan (1) Chest pain: (2) Syncope: (3) Hypokalemia: Plan 58-year-old female PMHx asthma, migraine headaches, GERD, anxiety, hypothyroidism, and history of BCC presenting for chest pain x 1 week with associated syncope x 2. ED evaluation reveals no leukocytosis, stable H&H; PT/INR WNL; CMP potassium 3. 3.0; pending magnesium 0, CO2 34; magnesium pending; troponin 3.0, pending repeat; lipase 56; CXR mild cardiac enlargement; EKG NSR with possible LAE at 77 bpm.; Provided with KCl 40 mEq p.o. and NSS 1L in ED. #Chest pain/Syncope Chest pressure/tightness starting at approximately 1 week ago, with associated s yncope x 2 episodes within the past week. Describes associated palpitations/fluttering. No triggering factors. ? orthostasis vs arrhythmia vs other. - CBC, PT/INR WNL; CMP with potassium 3.0 otherwise grossly WNL - BMP am - Troponin 3.0, pending repeat - EKG normal sinus at 77 bpm, no ischemic changes - CXR without acute findings - Stress echo pending for a.m. - Lipid panel pending - Continue cardiac monitoring - Orthostatic vitals pending -- acceptable w/o significant drop 5/14 Trop 3.0--> 2.8 on high sensitivity troponin. Stress echo ordered for today for eval K 3.0 on admission. Replacement KCl provided and repeat K improved to 4.1. Ordered 40meq x 1 for this morning but will place on hold for now. Received 1L NSS. Notable is on HCTZ-lisinopril at home and currently on HOLD ?dehydration from HCTZ and combination of Low Potassium contributing to sx?? Note BP on arrival 160/85, currently low normal 96/62. If resumed, ?lisinopril alone Also notes prior use PPI but stopped but does endorse sore throat PCP noting hx MDD, prior rx effexor in [id number], ?component of anxiety as well. TSH wnl, on synthroid #Hypokalemia K 3.0; Mg 2.1 Asymptomatic currently. Received KCl 40 mEq po in ED. - HOLD lisinopril-HCTZ until repeat K - BMP am #Asthma- Albuterol prn - continue #HLD- Atorvastatin 20mg - continue #Hypothyroidism- TSH pending; Levothyroxine - continue #HTN- Lisinopril-hydrochlorothiazide -- HOLD given hypokalemia Experiencing increased anxiety in hospital setting- provided 1 time dose lorazepam for such. Dispo: Admit, med/tele VTE prophylaxis: Lovenox This document was dictated utilizing [employer]. Please excuse any grammatical errors that may be secondary to use of this software. Admission and Anticipated Discharge Date Admission Date: October 05, 2024 Results & Data Results & Data Vital Signs (Past 12 Hours) Vital Signs Temp Pulse Pulse Pulse Resp BP BP 10/06/24 07:00 60 10/06/24 04:08 36.4 C L 74 18 96/62 L 10/05/24 23:00 36.7 C 82 18 10/05/24 22:52 83 10/05/24 22:21 84 20 127/69 10/05/24 21:42 82 10/05/24 21:00 75 20 BP Pulse Ox O2 Del Method 10/06/24 07:00 10/06/24 04:08 95 Room Air 10/05/24 23:00 112/75 93 Room Air 10/05/24 22:52 10/05/24 22:21 97 Room Air 10/05/24 21:42 10/05/24 21:00 117/70 99 Room Air PG Care Time/CCT Total # of Minutes Spent Total Time Spent with Patient: Total time spent is greater than 50% in coordination of care (as documented) at patient's floor/unit and/or counseling patient: Coding Diagnoses Chest pain R07.9 Syncope R55 Hypokalemia E87.6
[2024-10-06 08:02] VITALS: TEMP 97.9
[2024-10-06] MEDS ORDERED: POTASSIUM CHLORIDE CRTAB 20 MEQ TABCR PO SCH (09:00)
[2024-10-06] MEDS: ATORVASTATIN 20 MG TAB PO SCH (11:08)
[2024-10-06] MEDS: FAMOTIDINE 20MG IV PUSH 20 MG/5 ML SYR IV SCH (11:20)
[2024-10-06] MEDS: ATROPINE SULFATE 0.1 MG/ML 10ML SYR IV ONE (11:46)
[2024-10-06] MEDS: DOBUTamine HCL 12.5 MG/ML 20 ML VIAL IV ONE (11:46)
[2024-10-06] MEDS: METOPROLOL TARTRATE 1 MG/ML VIAL IV ONE (11:46)
[2024-10-06 11:50] VITALS: BP 133/76; RESP 20; O2SAT 95
--- NOTE | 2024-10-06 12:20 | Discharge Summary ---
Discharge Summary Date of Service October 06, 2024 Principal Dx & Hospital Course #1 = Principal Diagnosis (1) Chest pain: (2) Syncope: (3) Hypokalemia: Plan #CP, Chest pressure #Syncope # Hypokalemia 58yo F w/ PMHx significant for hypothyroidism, asthma, migraine, GERD, anxiety, BCC presented for CP x 1 wk w/ syncope x 2 when getting up overnight to use the restroom. CXR without acute PNA pr consolidation (does note some mild cardiac enlargement), no leukocytosis or fevers reported. Reported sensation of fluttering in her chest at times over the past week but did NOT occur while inpatient. No evidence/concerns for seizure activity. Electrolytes significant for K 3.0, mag wnl 2.1. BP elevated on admission however ?dehydration from her HCTZ for BP and denied any hx CHF or leg edema. Did appear dry mm per HPI noted Was given 1L NSS on admission and 40meq KCL and home lisinopril-HCTZ held Troponin 3.0--> 2.8 on high sensitivity testing EKG w/ NSR w/ possible LAE at 77bpm Stress ECHO obtained -- normal LV systolic function, grade I diastolic dysfunction, RVSP is normal, no significant valvular disease. Low risk exercise echo WITHOUT evidence for inducible ischemia. No further CP or syncope reported or fluttering in her chest. Telemetry w/ NSR, no arrhythmia. TSH wnl on Synthroid (consider ref to endo per pt req in f/u PCP) Lipid panel acceptable and can continue on current regimen. K normalized to 4.1 on repeat labs w/ stable renal function and BP GREAT control 133/76 OFF both lisinopril-HCTZ and discussed rx for LISINOPRIL 20mg alone and checking her BP at discharge 2x/daily and follow up with PCP for ongoing management. Consideration to increase her lisinopril if needed for BP or consider medication like propranolol which could help with anxiety as well. No hx leg edema/CHF and suspect underlying HCTZ could promote dehydration/electrolyte abn and would avoid unless occurs. Did report son w/ hx SVT s/p ablation but notes from her side. Given such and patients concerns (however also noting could have aspect of anxiety) did arrange for 14day ZIO monitor at dc to see if symptoms correlate w/ any abnormality and can f/u with cardiology/EP at discharge if occurs. CM arranged to have this picked up out front at discharge. Discussed s/sx to return if occur. Notable PCP note in past w/ reports anxiety. Patient does report underlying anxiety but not on medications/not started at this time. Did get one time dose ativan while in the hospital and should have f/u discussions w/ PCP Again, could consider propranolol for anxiety/BP control if needed in f/u. Did also endorse hx reflux but sx not c/w such but could consider resumption H2/PPI in f/u as well if desired. #HTN - on HCTZ- lisinopril as above at baseline. BP elevated on admission but ?anxiety vs dehydration. IVF provided and BP meds held and has been stable BP 133/76 prior to dc off. Given no hx CHF/leg edema and presented w/ K 3.0, decision to rx lisinopril alone and montior BP at home. Consideration to increase JOSELIN vs add BB like propranolol as above. F/u PCP #Asthma - no wheezing/exacerbation and remained on RA. Albuterol HFA available as needed #HLD - Atorvastatin 20mg continued and acceptable lipid panel. F/u PCP #Hypothyroidism - TSH wnl and continued on Synthroid. Notable did have switch in provided med in past month and back on usual oval shape. F/u PCP, consider endo ref per pt req Notes For Next Care Provider Monitor follow up BPs to see if needing increase in HTN regimen -- have dc'd HCTZ given no hx CHF/edema Consideration to start anxiolytic vs propranolol if needed (mentioned BB to pt as well) Arranged 14 day zio monitor given intermittent symptoms which did not occur while inpatient for completeness given son w/ hx SVT but was NSR on telemetry. Ref to [facility]/Dr He rec pending results (suspect patient would benefit from cards referral/EP to ensure no issues, however could entertain aspect of anxiety contributing) Medication Changes From Visit DC HCTZ Rx usual lisinopril 20mg daily Admission HPI Per Admitting Provider 58-year-old female PMHx asthma, migraine headaches, GERD, anxiety, hypothyroidism, and history of BCC presenting for chest pain x 1 week with associated syncope x 2. 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 This did cause her some chest pressure and discomfort. Patient states she is often active and likes to walk daily, but approximately 1 week THERMAL ENGINEER she was walking and had increased fatigue from her baseline. Notes that on 2 separate occasions she had episodes where she would get up in the middle the night to go to the restroom and walk a few steps then suddenly passing out for 1 to 2 seconds and regain consciousness as she was falling. Patient states that she did not fall to the floor fall and did not injure any part of her body. Did not hit her head. States that these episodes were completely unprovoked and she did not get any dizziness, chest pain, or SOB prior to passing out. This occurred approximately 5 days THERMAL ENGINEER and then 2 days THERMAL ENGINEER. The chest discomfort continued into the day of arrival and was not getting better, so the patient called her PCP who encouraged her to have a stress echo done. This was unable to be scheduled until October, so given the ongoing chest pain and episodes of syncope, patient's PCP encouraged her to come to the ED for evaluation. Patient denies dizziness or lightheadedness. Patient states that her anxiety has increased significantly given these new symptoms and her concern for her health. Will occasionally get bilateral lower extremity edema, but this has not been a recent occurrence for patient. Overall denying shortness of breath, abdominal pain, N/V/D/C, numbness/tingling, fever/chills, URI symptoms, or fever/chills. Has never had this happen before. Patient took all of her daily medications. ED evaluation reveals no leukocytosis, stable H&H; PT/INR WNL; CMP potassium 3.0, CO2 34; magnesium 2.1; troponin 3.0, pending repeat; lipase 56; CXR mild cardiac enlargement; EKG NSR with possible LAE at 77 bpm.; Provided with KCl 40 mEq p.o. and NSS 1L in ED. Please see Dr. Clayton's attestation for adjustments/additions to treatment plan. Admission Exam Per Admitting Provider General: No acute distress Skin: Warm and dry Head: Normocephalic, atraumatic Eyes: PERRL, conjunctivae clear, sclera non-icteric; wearing glasses ENT: External ear and ear canal without swelling; nose atraumatic; good dentition, tongue normal appearance, pharynx normal Neck: Supple, no LAD Cardio: RRR, no M/G/R, S1 and S2 normal Resp: No respiratory distress, Lungs CTA in all lobes bilaterally, no wheezes, rales, or rhonchi Abdomen: Soft, symmetric, nontender; No masses or hepatosplenomegaly; Bowel sounds normoactive MSK: No deformities; pulses palpable and equal; no edema. Neuro: Awake, alert; Sensation intact bilaterally; CN grossly intact Psych: Visibly anxious, good judgement and insight. present in room at time of visit. Discharge Exam General: 58yo female sitting up in bed, NAD HEENT head atraumatic, normocephalic, mmm, trachea midline Resp: even/unlabored, no wheezing/rales, 95% on RA CV: regular, sinus on telemetry, rates controlled, no arrhythmia, no pitting edema/calf tenderness GI: +BS, soft/NT no [place] MSK/Neuro; nonfocal, moves all extremities, ambulating in room without assistance Psych: AOx3, cooperative Discharge Plan Discharge Items Patient Disposition: Home - Self-Care Reason For Visit: CHEST DISCOMFORT,SYNCOPE Discharge Diagnosis: Chest pain, rule out Hypokalemia Goals: You have been hospitalized for an acute medical problem. During your stay at [facility], we have made an effort to correct the problem that brought you to the hospital while keeping you as comfortable as possible. Medications were used to bring your condition under control and your discharge instructions will include directions for any medications you should take after leaving the hospital. Please make sure you see your Primary Care Provider as part of your follow up plan. Activity: As commented below Non-emergency contact: Primary Care Provider Call non-emergency contact if: you have any medication questions, your symptoms worsen, your pain is not controlled, your pain is worsening, your pain is unusual for you and you have a fever Follow-up/Referrals: Kulwant He MD [Physician] - Genoveva Fontaine [Primary Care Provider] - (PLEASE CALL YOUR PRIMARY CARE PROVIDER TO SCHEDULE A HOSPITAL FOLLOW-UP APPOINTMENT WITHI 7-10 DAYS) Diet: Heart Healthy Ambulatory Orders: ECG holter monitor scan (Routine) Timeframe: 14 Day Location: Determined by Patient Ordered By: Georgina Overton Addtl Attending Provider Instructions: You have been hospitalized for chest pain and syncope. Troponin (enzyme that measures damage to the heart) was negative on repeat lab draws and EKG was without ischemic changes. You did have a low potassium level and replacement was ordered and as discussed this can be from the hydrochlorothiazide. We have sent your LISINOPRIL ALONE for now but recommend checking BP at home 2x/daily as discussed and consideration to increase this as needed but also can consider propranolol which also helps with anxiety and BP control if needed. We are arranging for a zio monitor (bus monitor) at discharge to monitor for any arrhythmia and will have referral sent to cardiology in follow up. You should be able to pick this up on your way home at discharge. Please follow up with PCP in the next 7-10 days. Please return to the ER with any return of chest pain/pressure, fever/chills, shortness of breath, syncope or for any other symptoms concerning for you. It has been a pleasure being a part of the medical team providing for you while you have been in the hospital. Take care! Pending Studies at Discharge: No Stand-Alone Forms: My [facility], Smoking Cessation Medications and DC Order Prescriptions: New lisinopril 20 mg tablet 20 mg PO DAILY Qty: 30 0RF Continued cholecalciferol (vitamin D3) 2,000 unit capsule 2,000 units PO DAILY levothyroxine 88 mcg tablet 88 mcg PO DAILY estradiol 0.01 % (0.1 mg/gram) cream 1 g vaginal .COMPLEX Qty: 42.5 1RF Rx Instructions: 1 g vaginal; 1gm PV daily for 14 days, then 1/2gm PV twice weekly atorvastatin 20 mg tablet 20 mg PO UD albuterol sulfate 90 mcg/actuation HFA aerosol inhaler 1 - 2 puff INHALATION .EVERY 4-6 HRS multivitamin Tablet 1 tab PO DAILY Discontinued lisinopril-hydrochlorothiazide 20-25 mg tablet 1 tab PO DAILY Discharge Orders: Discharge Order (Routine); Ordered 10/06/24 Ordered By: Georgina Overton Admission Data Admit Date/Time: 10/05/24 20:12 Attending Provider: Gennaro Avendano Admit Provider: Rosemary Clayton Primary Care Provider: Genoveva Fontaine Other Interventions: Discharge Summary Assessment (RN) Last Done: 10/06/24 13:19 Hospital Stay Data Diagnostic Imagining Performed Chest X-Ray 10/05/24 00:00 Open the EXAM: Portable AP chest radiograph TECHNIQUE: AP portable radiograph of the chest was obtained. INDICATION: Chest pain. Comparison: None FINDINGS: LINES and TUBES: None CARDIOVASCULAR: Cardiac silhouette is mildly enlarged in size. Atherosclerosis of the thoracic aorta. LUNGS/PLEURA: No focal consolidation identified. Chronic interstitial changes of the lungs. No significant pleural fluid. No discernible pneumothorax. OSSEOUS/OTHER: No displaced acute osseous process identified. IMPRESSION: Mild cardiac enlargement. Electronically signed by Darryl Keyes 10-05-2024 7:35 PM STRESS ECHOCARDIOGRAM 10/06/24 Left ventricular systolic function is normal Grade I diastolic dysfunction Right ventricular systolic pressure is normal No significant valvular heart disease Low risk exercise echocardiogram without evidence of inducible ischemia. No rafael st pain reported. Discharge Instructions Given to Patient (Per Discharging Provider) You have been hospitalized for chest pain and syncope. Troponin (enzyme that measures damage to the heart) was negative on repeat lab draws and EKG was without ischemic changes. You did have a low potassium level and replacement was ordered and as discussed this can be from the hydrochlorothiazide. We have sent your LISINOPRIL ALONE for now but recommend checking BP at home 2x/daily as discussed and consideration to increase this as needed but also can consider propranolol which also helps with anxiety and BP control if needed. We are arranging for a zio monitor (bus monitor) at discharge to monitor for any arrhythmia and will have referral sent to cardiology in follow up. You should be able to pick this up on your way home at discharge. Please follow up with PCP in the next 7-10 days. Please return to the ER with any return of chest pain/pressure, fever/chills, shortness of breath, syncope or for any other symptoms concerning for you. It has been a pleasure being a part of the medical team providing for you while you have been in the hospital. Take care! Supervising Physician Co-Signing Physician Notes The patient was not seen by me. The chart was reviewed. Case discussed with MELA Gonzales. Agree with assessment and plan Total Time Total Time Spent Total Time Spent (In Minutes): 45 Coding Level of Care Code 38683 INP/OBS DISCH >30 MIN Diagnoses Chest pain R07.9 Syncope R55 Hypokalemia E87.6
--- NOTE | 2024-10-06 13:05 | XCELERA ---
[id number]
--- NOTE | 2024-10-06 13:41 | Electrocardiogram Report ---
Test Reason : Blood Pressure : */* mmHG Vent. Rate : 86 BPM Atrial Rate : 86 BPM P-R Int : 158 ms QRS Dur : 78 ms QT Int : 368 ms P-R-T Axes : 51 4 2 degrees QTcB Int : 440 ms Normal sinus rhythm Possible Left atrial enlargement Abnormal ECG No previous ECGs available Confirmed by Kulwant He ([id number]) on 10/06/2024 1:41:19 PM Referred By: REFERRED SELF Confirmed By: Kulwant He
--- NOTE | 2024-10-06 14:07 | Electrocardiogram Report ---
Test Reason : Blood Pressure : */* mmHG Vent. Rate : 77 BPM Atrial Rate : 77 BPM P-R Int : 160 ms QRS Dur : 82 ms QT Int : 400 ms P-R-T Axes : 61 2 8 degrees QTcB Int : 452 ms Normal sinus rhythm Possible Left atrial enlargement Borderline ECG When compared with ECG of 05-Oct-2024 17:22, (unconfirmed) Nonspecific T wave abnormality, improved in Anterolateral leads Confirmed by Kulwant He ([id number]) on 10/06/2024 2:07:09 PM Referred By: REFERRED SELF Confirmed By: Kulwant He
[2024-10-06 14:38] VITALS: PULSE 93
== END 2024-10-06 15:00 | disposition home or self-care (01) ==
LOC: ED 17:09 → 2N 17:09 → SUATTDRO 20:12 → 2N 22:21